=== PATIENT | male | born 1990 | race Caucasian/White ===

== ENCOUNTER 2019-12-11 04:18 | Emergency (ER) | payer SELFPAY ==
[~2019-12-11] VITALS: Ht 182.9 cm; Wt 81.7 kg
[2019-12-11 05:28] LABS: BASOPHILS % (AUTO) 0 % (0-10); EOSINOPHILS # (AUTO) 0.2 10^3/uL (0.0-0.3); EOSINOPHILS % (AUTO) 2 % (0-10); HEMATOCRIT 38 % (40-54); HEMOGLOBIN 12.7 G/DL (13.3-17.7); LYMPHOCYTES # (AUTO) 2.9 X 10^3 (1.0-4.0); LYMPHOCYTES % (AUTO) 24 % (12-44); MEAN CORPUSCULAR HEMOGLOBIN 31 PG (25-34); MEAN CORPUSCULAR HGB CONC 34 G/DL (32-36); MEAN CORPUSCULAR VOLUME 92 FL (80-99); MEAN PLATELET VOLUME 11.3 FL (7.4-10.4); MONOCYTES # (AUTO) 1.1 X 10^3 (0.0-1.0); MONOCYTES % (AUTO) 9 % (0-12); NEUTROPHILS # (AUTO) 8.2 X 10^3 (1.8-7.8); NEUTROPHILS % (AUTO) 66 % (42-75); PLATELET COUNT 231 10^3/uL (130-400); RED CELL DISTRIBUTION WIDTH 13.2 % (10.0-14.5); WHITE BLOOD COUNT 12.4 10^3/uL (4.3-11.0)
[2019-12-11 05:31] LABS: ALBUMIN 3.9 GM/DL (3.2-4.5); CHLORIDE 107 MMOL/L (98-107); POTASSIUM 3.8 MMOL/L (3.6-5.0); SODIUM 140 MMOL/L (135-145)
[2019-12-11 05:32] LABS: CALCIUM 8.5 MG/DL (8.5-10.1)
[2019-12-11 05:34] LABS: GLUCOSE 98 MG/DL (70-105); TOTAL PROTEIN 6.2 GM/DL (6.4-8.2)
[2019-12-11 05:35] LABS: BILIRUBIN,TOTAL 0.3 MG/DL (0.1-1.0); CARBON DIOXIDE 24 MMOL/L (21-32)
[2019-12-11 05:37] LABS: ALKALINE PHOSPHATASE 61 U/L (40-136); CREATININE SERUM 0.84 MG/DL (0.60-1.30); GFR ESTIMATED > 60
[2019-12-11 05:38] LABS: BUN/CREATININE RATIO 12
[2019-12-11 05:40] LABS: ALANINE AMINOTRANSFERASE 14 U/L (0-55)
[2019-12-11] MEDS ORDERED: CLINDAMYCIN 900 MG/50 ML IVPB 50 ML IV ONE (05:45)
[2019-12-11] MEDS ORDERED: KETOROLAC 30 MG/ML VIAL IVP ONE (05:45)
--- NOTE | 2019-12-11 05:49 | ED Lower Extremity ---
General Chief Complaint: Lower Extremity Stated Complaint: L LEG SWOLLEN Nursing Triage Note: PT AMBULATE TO ROOM 06 WITH C/O LEFT LEG SWELLING. 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 Sepsis Screen: No Definite Risk Source: patient History of Present Illness Date Seen by Provider: Dec 11, 2019 Time Seen by Provider: 05:11 Initial Comments PT ARRIVES VIA POV FROM HOME C/O PAIN TO LEFT LEG FROM MID THIGH DOWN TO ANKLE STATES LEFT KNEE HAS BEEN PAINFUL FOR THE LAST 2 DAYS STATES LEFT KNEE AND LOWER LEG HAVE BEEN RED AND SWOLLEN--ANTERIOR ASPECT NO KNOWN INJURY OR UNUSUAL ACTIVITY--STATES HE HAD BEEN OFF WORK FOR THE LAST FEW MONTHS, AND RETURNED TO WORK THIS WEEK--WORKS ON [employer] T[employer]ERS DENIES ANY CRAWLING ON KNEES OR KNEELING--STATES HE WALKS/IS ON HIS FEET, BUT NOT HIS KNEES NO KNOWN FEVER NO DRAINAGE NO STREAKS NO PARESTHESIAS OR MOTOR DEFICITS NO PRIOR PROBLEMS WITH KNEE NO HISTORY OF MRSA OR SKIN INFECTION NO KNOWN SICK CONTACTS OR EXPOSURE TO COVID-19. HOWEVER PT IS HERE FROM [place] FOR WORK PCP: NONE Allergies and Home Medications Allergies Coded Allergies: No Known Drug Allergies (Unverified , 12/11/19) Patient Home Medication List Home Medication List Reviewed: Yes Review of Systems Constitutional: no symptoms reported; No chills, No diaphoresis, No fever Respiratory: no symptoms reported Cardiovascular: no symptoms reported Gastrointestinal: no symptoms reported Genitourinary: no symptoms reported Musculoskeletal: see HPI Skin: see HPI Psychiatric/Neurological: No Symptoms Reported Past Pscdswu-Bmxzld-Nwoqof Hx Past Med/Social Hx: Reviewed and Corrections made Patient Social History Alcohol Use: Denies Use Recreational Drug Use: Yes (THC, METH--DENIES IV USE) Drug of Choice: THC, METH--DENIES IV USE Smoking Status: Current Everyday Smoker (1 PPD) Type Used: Cigarettes 2nd Hand Smoke Exposure: Yes Recent Foreign Travel: No Contact w/Someone Who Travel: No Recent Infectious Disease Expo: No Recent Hopitalizations: No Physical Abuse: No Sexual Abuse: No Mistreated: No Fear: No Seasonal Allergies Seasonal Allergies: No Past Medical History Surgeries: Yes (LOW BACK SURGERY) Appendectomy, Orthopedic Respiratory: No Cardiac: No Neurological: Yes (LOW BACK SURGERY) Spinal Cord Injury Genitourinary: No Gastrointestinal: No Musculoskeletal: Yes (LOW BACK SURGERY) Back Injury, Chronic Back Pain, Fractures Endocrine: No HEENT: No Cancer: No Psychosocial: No Integumentary: No Blood Disorders: No Physical Exam Vital Signs Vital Signs - First Documented 12/11/19 04:28 Temp 36.5 Pulse 85 Resp 19 B/P (MAP) 130/81 (97) O2 Delivery Room Air Capillary Refill : Less Than 3 Seconds Height, Weight, BMI Height: '" Weight: lbs. oz. kg; 24.00 BMI Method: General Appearance: WD/WN, no apparent distress Cardiovascular: normal peripheral pulses, regular rate, rhythm, no edema, no JVD, no murmur Respiratory: normal breath sounds, no respiratory distress, no accessory muscle use Gastrointestinal: non tender, soft Back: no CVA tenderness Hips: bilateral hip normal inspection Legs: right leg normal inspection; left leg other (ANTERIOR ASPECT OF LEFT LOWER LEG WITH ERYTHEMA AND WARMTH FROM KNEE TO JUST ABOVE ANKLE. NO CALF TENDERNESS. ) Knees: right knee normal inspection; left knee pain, left knee soft tissue tenderness, left knee swelling, left knee other (PREPATELLAR AREA WITH ERYTHEMA WARMTH, TENDERNESS AND MILD SWELLING. CENTRAL ASPECT WITH PINPOINT SCABBED AREA, WITH 2 PINPOINT PUSTULES WITHIN 1-2 CM FROM CENTER SCABBED. NO FLUCTUANCE, NO DRAINAGE. 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 PIERCING TO RIGHT CHEEK) Progress/Results/Core Measures Results/Orders Lab Results Laboratory Tests Test 12/11/19 05:18 12/11/19 05:30 Range/Units White Blood Count 12.4 H 4.3-11.0 10^3/uL Red Blood Count 4.10 L 4.35-5.85 10^6/uL Hemoglobin 12.7 L 13.3-17.7 G/DL Hematocrit 38 L 40-54 % Mean Corpuscular Volume 92 80-99 FL Mean Corpuscular Hemoglobin 31 25-34 PG Mean Corpuscular Hemoglobin Concent 34 32-36 G/DL Red Cell Distribution Width 13.2 10.0-14.5 % Platelet Count 231 130-400 10^3/uL Mean Platelet Volume 11.3 H 7.4-10.4 FL Neutrophils (%) (Auto) 66 42-75 % Lymphocytes (%) (Auto) 24 12-44 % Monocytes (%) (Auto) 9 0-12 % Eosinophils (%) (Auto) 2 0-10 % Basophils (%) (Auto) 0 0-10 % Neutrophils # (Auto) 8.2 H 1.8-7.8 X 10^3 Lymphocytes # (Auto) 2.9 1.0-4.0 X 10^3 Monocytes # (Auto) 1.1 H 0.0-1.0 X 10^3 Eosinophils # (Auto) 0.2 0.0-0.3 10^3/uL Basophils # (Auto) 0.0 0.0-0.1 10^3/uL Erythrocyte Sedimentation Rate 8 0-15 MM/HR Sodium Level 140 135-145 MMOL/L Potassium Level 3.8 3.6-5.0 MMOL/L Chloride Level 107 98-107 MMOL/L Carbon Dioxide Level 24 21-32 MMOL/L Anion Gap 9 5-14 MMOL/L Blood Urea Nitrogen 10 7-18 MG/DL Creatinine 0.84 0.60-1.30 MG/DL Estimat Glomerular Filtration Rate > 60 BUN/Creatinine Ratio 12 Glucose Level 98 70-105 MG/DL Calcium Level 8.5 8.5-10.1 MG/DL Corrected Calcium 8.6 8.5-10.1 MG/DL Total Bilirubin 0.3 0.1-1.0 MG/DL Aspartate Amino Transf (AST/SGOT) 14 5-34 U/L Alanine Aminotransferase (ALT/SGPT) 14 0-55 U/L Alkaline Phosphatase 61 40-136 U/L C-Reactive Protein High Sensitivity 2.69 H 0.00-0.50 MG/DL Total Protein 6.2 L 6.4-8.2 GM/DL Albumin 3.9 3.2-4.5 GM/DL Lactic Acid Level 0.90 0.50-2.00 MMOL/L My Orders Orders - HUNTER URIOSTEGUI DO Ed Iv/Invasive Line Start (12/11/19 05:18) Cbc With Automated Diff (12/11/19 05:18) Comprehensive Metabolic Panel (12/11/19 05:18) Hs C Reactive Protein (12/11/19 05:18) Erythrocyte Sedimentation Rate (12/11/19 05:18) Lactic Acid Analyzer (12/11/19 05:18) Blood Culture (12/11/19 05:18) Wound Culture (12/11/19 05:18) Ed Iv/Invasive Line Start (12/11/19 05:18) Knee, Left, 3 Views (12/11/19 05:33) Ketorolac Injection (Toradol Injection) (12/11/19 05:45) Clindamycin 900 Mg/50 Ml Ivpb (Cleocin P (12/11/19 05:45) Fentanyl Injection (Sublimaze Injection (12/11/19 06:30) Medications Given in ED Current Medications Medications Dose Ordered Sig/Isadora Route Start Time Stop Time Status Last Admin Dose Admin Clindamycin Phosphate/Dextrose 50 ml @ 100 mls/hr ONCE ONCE IV 12/11/19 05:45 12/11/19 06:14 DC 12/11/19 05:54 100 MLS/HR Fentanyl Citrate 50 mcg ONCE ONCE IVP 12/11/19 06:30 12/11/19 06:31 DC 12/11/19 06:26 50 MCG Ketorolac Tromethamine 30 mg ONCE ONCE IVP 12/11/19 05:45 12/11/19 05:46 DC 12/11/19 05:52 30 MG Vital Signs/I&O 12/11/19 04:28 Temp 36.5 Pulse 85 Resp 19 B/P (MAP) 130/81 (97) O2 Delivery Room Air Blood Pressure Mean: 97 Progress Progress Note : Progress Note PUSTULE DE-ROOFED AND CULTURE OBTAINED. GIVEN TORADOL WITH OUT RELIEF. GIVEN FENTANYL WITH SOME RELIEF GIVEN CLINDAMYCIN IV. Diagnostic Imaging Comments XRAYS LEFT KNEE--SOFT TISSUE SWELLING, NO ACUTE BONY PROCESS, PENDING RADIOLOGIST REVIEW Reviewed: Reviewed by Me Departure Impression Primary Impression: CELLULITIS LEFT KNEE AND LOWER LEG Additional Impression: SUSPECTED MRSA Disposition: HOME, SELF-CARE Condition: Stable Departure-Patient Inst. Referrals: NO,LOCAL PHYSICIAN (PCP) [place] [facility] Phys[place] [facility] [place] [facility] [place] Instructions: Cellulitis (Skin Infection), Adult (DC), MRSA (DC), Methicillin-Resistant Staphylococcus aureus (MRSA) Add. Discharge Instructions: ALTERNATE ICE AND HEAT TO AREA AT 20 MINUTE INTERVALS ELEVATE LEFT LEG MUCH POSSIBLE FOLLOW UP WITH [facility] OR DR OF CHOICE IN 2 DAYS FOR FURTHER CARE, RETURN TO ER IF WORSE All discharge instructions reviewed with patient and/or family. Voiced understanding. Scripts Tramadol HCl (Ultram) 50 Mg Tablet 50 MG PO Q4H for Pain, #20 TAB Prov: HUNTER URIOSTEGUI DO 12/11/19 Prednisone (Prednisone) 20 Mg Tab 40 MG PO DAILY, #6 TAB 0 Refills Prov: HUNTER URIOSTEGUI DO 12/11/19 Sulfamethoxazole/Trimethoprim (Bactrim Ds Tablet) 1 Each Tablet 2 EACH PO BID for 10 Days, #40 TAB Prov: HUNTER URIOSTEGUI DO 12/11/19 HUNTER URIOSTEGUI DO Dec 11, 2019 05:49
[2019-12-11 06:00] LABS: ERYTHROCYTE SEDIMENTATION RATE 8 MM/HR (0-15)
[2019-12-11] MEDS ORDERED: fentaNYL INJECTION 100 MCG/2 ML AMP IVP ONE (06:30)
[2019-12-11] MEDS ORDERED: PRD20T PO (07:07)
[2019-12-11] MEDS ORDERED: TRAM-42 PO (07:07)
[2019-12-11] MEDS ORDERED: SULF1TAB35 PO (07:07)
--- NOTE | 2019-12-11 07:08 | Diagnostic Imaging Report ---
HISTORY: Pain in the left knee TECHNIQUE: 3 views of the left knee COMPARISON: None FINDINGS: No acute fracture or dislocation is seen in the left knee. Alignment appears normal. Joint spaces are preserved. No joint effusion is seen. IMPRESSION: 1. No acute osseous abnormality is seen in the left knee. Dictated by: Dictated on workstation # [id number]
[2019-12-11 07:17] VITALS: BP 132/74
== END 2019-12-11 07:16 | disposition home or self-care (01) ==
LOC: ER 04:21
DX: L03.116 Cellulitis of left lower limb (principal); F17.210 Nicotine dependence, cigarettes, uncomplicated
CPT/HCPCS: 36415; 73562; 80053; 83605; 85025; 85652; 86141; 87040; 87070; 87077; 87186; 87205